=== PATIENT | female | born 1995 | race Caucasian/White ===

== ENCOUNTER 2017-09-27 00:08 | Emergency (ER) | payer MEDICAID, OTHER ==
[~2017-09-27] VITALS: Ht 160 cm; Wt 67.3 kg
[~2017-09-27 00:08] MED LIST: AMO250L PO; IBUP-1985 PO; NAPR-1154 PO; ONDA8TAB6 PO; PRENATAL VITAMINS
[2017-09-27 00:10] VITALS: BP 114/76
[2017-09-27 03:41] LABS: URINE HCG NEGATIVE (NEG)
== END 2017-09-27 03:00 | disposition home or self-care (01) ==
LOC: ER 00:08 → EEVIPCON 00:08 → ER 03:00
DX: T74.21XA Adult sexual abuse, confirmed, initial encounter (principal); F41.9 Anxiety disorder, unspecified; F32.9 Major depressive disorder, single episode, unspecified; F15.10 Other stimulant abuse, uncomplicated; Z86.19 Personal history of other infectious and parasitic diseases; Y07.03 Male partner, perpetrator of maltreatment and neglect
CPT/HCPCS: 81025; 99284

== ENCOUNTER 2017-12-28 18:00 | Emergency (ER) | payer MEDICAID, OTHER ==
[~2017-12-28] VITALS: Ht 160 cm; Wt 67.7 kg
[2017-12-28 18:22] VITALS: BP 129/73
[2017-12-28 18:57] LABS: URINE HCG POSITIVE (NEG)
== END 2017-12-28 19:11 | disposition home or self-care (01) ==
LOC: ER 18:02
DX: Z34.90 Encounter for supervision of normal pregnancy, unspecified, unspecified trimester (principal); F15.10 Other stimulant abuse, uncomplicated
CPT/HCPCS: 81025; 99282; 99283

== ENCOUNTER 2023-05-30 10:02 | Emergency (ER) | payer MEDICAID ==
[~2023-05-30] VITALS: Ht 160 cm; Wt 82.2 kg
[2023-05-30 10:10] VITALS: BP 117/86; PULSE 97; RESP 15; TEMP 99.3; O2SAT 98
[2023-05-30] MEDS ORDERED: TETanus/Pertussis (Acell)/Diphther VAC/PF (Tdap-Adult) 0.5ml syringe IMVAC ONE (10:55)
[2023-05-30] MEDS ORDERED: AMOX-580 PO (11:24)
== END 2023-05-30 11:37 | disposition home or self-care (01) ==
LOC: ER 10:02
DX: S71.131A Puncture wound without foreign body, right thigh, initial encounter (principal); F15.90 Other stimulant use, unspecified, uncomplicated; Z72.89 Other problems related to lifestyle; Z98.891 History of uterine scar from previous surgery; Z86.14 Personal history of Methicillin resistant Staphylococcus aureus infection; Z79.899 Other long term (current) drug therapy; Z79.2 Long term (current) use of antibiotics; Z23 Encounter for immunization; W54.0XXA Bitten by dog, initial encounter; Y93.89 Activity, other specified; Y92.89 Other specified places as the place of occurrence of the external cause; Y99.8 Other external cause status
CPT/HCPCS: 90471; 90715; 99283; A6258; A6449

== ENCOUNTER 2025-01-16 09:23 | Emergency (ER) | payer MEDICAID ==
[~2025-01-16] VITALS: Ht 167.6 cm; Wt 77.2 kg
[2025-01-16 09:29] VITALS: BP 136/78; PULSE 80; RESP 18; TEMP 97.6; O2SAT 100
[2025-01-16] MEDS ORDERED: AZIT250T83 PO (09:53)
--- NOTE | 2025-01-16 09:53 | Physician Documentation ---
HPI ~ General Chief Complaint: Tooth Problem Stated Complaint: ABSCESS TOOTH Time Seen by MD: 09:30 Primary Medical Doctor: DR. PAVON History of Present Illness HPI Comment 29-year-old female presents to the ED with a complaint of left-sided mouth pain and tissue swelling. She states she thinks she has a tooth abscess. States that she ate gold fish yesterday evening and woke up with a swollen left side of her face. Denies any nausea or fevers Medication Reconciliation Allergies: Coded Allergies: No Known Allergies (Unverified , 04/03/11) Scheduled Amoxicillin 250MG/5ML Susp* (Amoxicillin 250MG/5ML Susp*), 5 ML PO TID Azithromycin (Azithromycin), 1 TAB PO UD Naproxen (Naprosyn), 1 TABLET PO BID Scheduled PRN Ibuprofen (Ibuprofen), 1 TAB PO Q8H PRN for pain Ondansetron Hcl (Zofran), 8 MG PO Q8HPRN PRN for nausea/vomiting Miscellaneous Medications [ Vitamins], (Reported) Past Medical History Past Medical History: Hepatitis C, MRSA Abscess, Anxiety, Depression Past Surgical History: Alcohol Use: Occasionally Drug Use: methamphetamine Lives with: Family Lives In: Home Occupation: employed Review of Systems All Other Systems at this time: Reviewed and Negative ROS As stated above in the HPI, otherwise all systems are reviewed and negative. Physical Exam Vital Signs: Temperature: 97.6, Source: Temporal, Heart Rate: 80, Respiratory Rate: 18, BP: 136/78, Pulse Oximetry: 100, Weight: 77.200 Physical Exam General: Alert, no apparent distress. HEENT: PERRL, EOMI, no injection, moist mucous membranes. Lower left back molar notable for tissue swelling and possible abscess. Previous dental work in the surrounding area Neck: Full range of motion. Psychiatric: Normal mood and affect. Skin: Normal color, warm and dry. No edema, no ecchymosis. Progress Results/Orders Results/Orders Vital Signs 01/16/25 09:29 Temp 97.6 Pulse 80 Resp 18 B/P (MAP) 136/78 Pulse Ox 100 Medical Decision Making Findings going to treat patient with azithromycin for suspected tooth abscess as she states that her breast-feeding baby is allergic to cillins. Differential Dx:Considerations: Include: Alveolar fracture, Alveolar osteitis, ANUG, Facial Cellulitis, Periapical abscess, Peridontal abscess, Post-extraction bleeding, Pulpitis, Tooth avulsion, Tooth eruption, Tooth Fracture, Trigeminal neuralgia, Tooth subluxation, Other Departure Disposition: HOME / SELF CARE / HOMELESS Impression: Primary Impression: Dental caries Additional Impression: Toothache Condition: Stable Discharge Instructions: Dental Caries, Adult, Dental Abscess Referrals: NO PRIMARY CARE PROVIDER (PCP) Prescriptions Azithromycin (Azithromycin) 250 Mg Tablet 1 TAB PO UD for 5 Days, #6 TAB 2 the first day followed by 1 for days 2-5 Prov: CJ RODRIGUEZ NP 01/16/25 Signature Scribe Signature: h Attestation: The note accurately reflects work and decisions made by me.Cj Carreno NP 01/16/25 18:13 CJ RODRIGUEZ NP January 16, 2025 09:53
[2025-01-17] MEDS ORDERED: CEPH-585 PO (11:47)
== END 2025-01-16 10:33 | disposition home or self-care (01) ==
LOC: ER 09:23
DX: K04.7 Periapical abscess without sinus (principal); K02.9 Dental caries, unspecified; F32.A Depression, unspecified; F41.9 Anxiety disorder, unspecified; F15.90 Other stimulant use, unspecified, uncomplicated; Z72.89 Other problems related to lifestyle
CPT/HCPCS: 99283

== ENCOUNTER 2025-01-17 11:33 | Emergency (ER) | payer MEDICAID ==
[~2025-01-17] VITALS: Ht 157.5 cm; Wt 79.6 kg
[~2025-01-17 11:33] MED LIST changes: +AZIT250T83 PO
[2025-01-17 11:36] VITALS: BP 133/69; PULSE 84; RESP 18; TEMP 97.6; O2SAT 98
[2025-01-17] MEDS ORDERED: CEPH-585 PO (11:47)
--- NOTE | 2025-01-17 11:48 | Physician Documentation ---
History of Present Illness ~ Chief Complaint: Abscess Stated Complaint: ABSCESS TOOTH Time Seen by MD: 11:42 Primary Medical Doctor: DR. PAVON HPI Year old female returns to the ED with a complaint of increased facial swelling since yesterday. She states she took her two doses of azithromycin and the tooth abscess began to drain she pushed on the area and was able to remove a l arge amount of purulent discharge. She woke up this morning with increased pain and swelling. Tetanus Within 5 Years: No Medication Reconciliation Allergies: Coded Allergies: No Known Allergies (Unverified , 01/17/25) Scheduled Amoxicillin 250MG/5ML Susp* (Amoxicillin 250MG/5ML Susp*), 5 ML PO TID Azithromycin (Azithromycin), 1 TAB PO UD Cephalexin*Monohydrate* (Keflex*), 1 CAP PO QID Naproxen (Naprosyn), 1 TABLET PO BID Scheduled PRN Ibuprofen (Ibuprofen), 1 TAB PO Q8H PRN for pain Ondansetron Hcl (Zofran), 8 MG PO Q8HPRN PRN for nausea/vomiting Miscellaneous Medications [ Vitamins], (Reported) Past Medical History Past Medical History: Hepatitis C, MRSA Abscess, Anxiety, Depression Past Surgical History: Alcohol Use: Occasionally Drug Use: methamphetamine Lives with: Family Lives In: Home Occupation: employed Review of Systems All Other Systems at this time: Reviewed and Negative ROS As stated above in the HPI, otherwise all systems are reviewed and negative. Physical Exam Vital Signs: Temperature: 97.6, Source: Temporal, Heart Rate: 84, Respiratory Rate: 18, BP: 133/69, Pulse Oximetry: 98, Weight: 79.600 Physical Exam General: Alert, no apparent distress. HEENT: PERRL, EOMI, no injection, moist mucous membranes. Facial swelling left side notable tooth caries in the left lower molars Neck: Full range of motion. Psychiatric: Normal mood and affect. Skin: Normal color, warm and dry. No edema, no ecchymosis. Progress Results/Orders Results/Orders Completed Orders - CJ RODRIGUEZ MERRY GO ROUND ATTENDANT Cephalexin Capsule (Keflex Capsule) (01/17/25 11:45) Vital Signs 01/17/25 01/17/25 11:36 12:15 Temp 97.6 Pulse 84 Resp 18 B/P (MAP) 133/69 Pulse Ox 98 Medical Decision Making Findings Changing antibiotics to Keflex and will advise the patient to follow up in the outpatient setting Differential Dx:Considerations: Include: Abscess, Bacteremia, Cellulitis, Erysipelas, Felon, Gas gangrene, Hidrademitis suppurativa, Impetigo, Lymphangitis, Osteromyelitis, Paronychia, Septicemia, Other Departure Disposition: HOME / SELF CARE / HOMELESS Impression: Primary Impression: Abscess Additional Impression: Dental caries Condition: Stable Discharge Instructions: Abscessed Tooth, [id number] Referrals: NO PRIMARY CARE PROVIDER (PCP) Prescriptions Cephalexin*Monohydrate* (Keflex*) 500 Mg Capsule 1 CAP PO QID, #40 CAP Prov: CJ RODRIGUEZ MERRY [employer] ROUND ATTENDANT 01/17/25 Signature Scribe Signature: k Attestation: The note accurately reflects work and decisions made by me.Cj Rodriguez - TARSHA 01/17/25 16:27 CJ RODRIGUEZ NP January 17, 2025 11:48
[2025-01-17] MEDS: cephalexin 250mg capsule PO ONE (12:13)
== END 2025-01-17 12:17 | disposition home or self-care (01) ==
LOC: ER 11:34
DX: K04.7 Periapical abscess without sinus (principal); K02.9 Dental caries, unspecified; F15.90 Other stimulant use, unspecified, uncomplicated; F41.9 Anxiety disorder, unspecified; F32.A Depression, unspecified; Z79.899 Other long term (current) drug therapy; Z72.89 Other problems related to lifestyle
CPT/HCPCS: 99283

== ENCOUNTER 2025-03-05 16:46 | Emergency (ER) | payer MEDICAID ==
[~2025-03-05] VITALS: Ht 167.6 cm; Wt 68.2 kg
[~2025-03-05 16:46] MED LIST changes: -AZIT250T83 PO; +CEPH-585 PO
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
[2025-03-05] MEDS ORDERED: BACI1PAC7 TP (17:50)
[2025-03-05] MEDS ORDERED: NAPR-56 PO (17:50)
[2025-03-05] MEDS ORDERED: HYDR-3965 PO (17:50)
[2025-03-05] MEDS ORDERED: CEPH-585 PO (17:52)
[2025-03-05] MEDS: ketorolac trometh 15mg/ml vial 15 MG/ML ML IM ONE (18:05)
[2025-03-05] MEDS: acetaminophen 325mg tablet PO ONE (18:05)
[2025-03-05] MEDS: TETanus/Pertussis (Acell)/Diphther VAC/PF (Tdap-Adult) 0.5ml syringe IMVAC ONE (18:06)
[2025-03-05 18:28] VITALS: BP 138/89; PULSE 98; TEMP 98.5; O2SAT 98
[2025-03-05 18:31] VITALS: RESP 16
== END 2025-03-05 18:36 | disposition home or self-care (01) ==
LOC: ER 16:46
DX: S90.822A Blister (nonthermal), left foot, initial encounter (principal); S90.821A Blister (nonthermal), right foot, initial encounter; F41.9 Anxiety disorder, unspecified; F32.A Depression, unspecified; F15.90 Other stimulant use, unspecified, uncomplicated; Z72.89 Other problems related to lifestyle; Z79.899 Other long term (current) drug therapy; X58.XXXA Exposure to other specified factors, initial encounter; Y93.02 Activity, running; Y92.89 Other specified places as the place of occurrence of the external cause; Y99.8 Other external cause status
CPT/HCPCS: 16000; 90471; 90715; 96372; 99284; J1885; L3260; 16020